=== PATIENT | female | born 1995 | race Caucasian/White ===

== ENCOUNTER → 2019-06-18 | Outpatient (CLI) | payer BC | LOC: COL.RAD 07:30 | DX: R10.31 Right lower quadrant pain (principal) ==

== ENCOUNTER 2021-01-04 18:57 | Emergency (ER) | payer SELFPAY ==
[~2021-01-04] VITALS: Ht 152.4 cm; Wt 42.4 kg
[2021-01-04 22:39] VITALS: BP 119/81; PULSE 72; TEMP 98.6
[2021-01-04] MEDS ORDERED: PRENATAL TABLET PO (23:15)
[2021-01-04 23:28] LABS: COLLECTION METHOD CLEAN CATCH
[2021-01-04 23:46] LABS: MUCOUS Present /lpf; PH 6 (5-8); URINE APPEARANCE Clear; URINE BACTERIA None Seen /hpf; URINE BILIRUBIN Negative (NEGATIVE); URINE BLOOD Negative (NEGATIVE); URINE COLOR Yellow; URINE GLUCOSE Negative (NEGATIVE); URINE KETONE 1+ (NEGATIVE); URINE LEUKOCYTE ESTERASE Negative (NEGATIVE); URINE NITRATE Negative (NEGATIVE); URINE PROTEIN(semi-quant) Negative (NEGATIVE); URINE RBC 0-2 /hpf; URINE UROBILINOGEN Negative (NEGATIVE)
== END 2021-01-04 23:25 | disposition home or self-care (01) ==
LOC: COL.ER 18:57
PROVIDERS: Emergency Medicine
DX: T74.21XA Adult sexual abuse, confirmed, initial encounter (principal); T71.193A Asphyxiation due to mechanical threat to breathing due to other causes, assault, initial encounter
CPT/HCPCS: Q9967